=== PATIENT | female | born 1975 | race Two or more races ===

== ENCOUNTER 2018-11-14 18:28 | Emergency (ER) | payer SELFPAY ==
[~2018-11-14] VITALS: Ht 167.6 cm; Wt 72.6 kg
--- NOTE | 2018-11-14 18:51 | NUR ---
PATIENT WAS SEEN BY MD. SHE IS AWAKE AND ALERT IN NO DISTRESS.
[2018-11-14] MEDS ORDERED: CYCLOBENZAPRINE HCL 10 MG TABLET ONE (18:56)
[2018-11-14] MEDS ORDERED: HYDROCODONE/APAP 5-325MG TABLET ONE (18:56)
[2018-11-14] MEDS ORDERED: CYCLOBENZAPRINE HCL 10 MG TABLET PO ONE (19:00)
[2018-11-14] MEDS ORDERED: HYDROCODONE/APAP 5-325MG TABLET PO ONE (19:00)
--- NOTE | 2018-11-14 19:13 | NUR ---
DC, RX (INCLUDING PRECAUTIONS) AND FOLLOW UP INSTRUCTIONS GIVEN AND EXPLAINED TO PATIENT WHO STATES SHE UNDERSTANDS ALL INSTRUCTIONS. SHE STATES SHE WILL NOT DRIVE AND TAKE A "LYFT" HOME
== END 2018-11-14 19:19 | disposition home or self-care (01) ==
LOC: ER 18:30
DX: S80.02XA Contusion of left knee, initial encounter (principal); M54.5 Low back pain; V49.9XXA Car occupant (driver) (passenger) injured in unspecified traffic accident, initial encounter; Y93.89 Activity, other specified; Y92.410 Unspecified street and highway as the place of occurrence of the external cause; Y99.8 Other external cause status
CPT/HCPCS: A4663

== ENCOUNTER 2019-09-25 00:02 | Emergency (ER) | payer BC ==
[~2019-09-25] VITALS: Ht 167.6 cm; Wt 77.1 kg
--- NOTE | 2019-09-25 00:22 | NUR ---
Dr. Yusuf at bedside for MSE
[2019-09-25] MEDS ORDERED: IBUPROFEN 600 MG TABLET PO ONE (00:30)
[2019-09-25] MEDS ORDERED: TDAP DIPH,PERTUSS,TET VAC/PF 0.5 ML DISP.SYRIN IM ONE ×2 (00:30→00:39)
[2019-09-25] MEDS ORDERED: IBUPROFEN 600 MG TABLET ONE (00:38)
[2019-09-25 01:13] LABS: *URINE HCG, QUAL NEGATIVE (NEGATIVE)
--- NOTE | 2019-09-25 02:53 | NUR ---
Patient discharged to home in stable conditon. Written and verbal after care instructions given. Patient verbalizes understanding of instructions. Patient ambulating with steady gait
[2019-09-25 02:55] VITALS: BP 122/81
== END 2019-09-25 02:53 | disposition home or self-care (01) ==
LOC: ER 00:08
DX: S61.012A Laceration without foreign body of left thumb without damage to nail, initial encounter (principal); S13.4XXA Sprain of ligaments of cervical spine, initial encounter; S39.012A Strain of muscle, fascia and tendon of lower back, initial encounter; V49.49XA Driver injured in collision with other motor vehicles in traffic accident, initial encounter; Y93.89 Activity, other specified; Y92.89 Other specified places as the place of occurrence of the external cause; Y99.8 Other external cause status
CPT/HCPCS: 72100; 72220; 73140; 84703; 90715; A4663